=== PATIENT | male | born 1940 | race Caucasian/White ===

== ENCOUNTER 2019-01-01 09:31 | Inpatient (IN) ==
--- NOTE | 2018-12-14 13:17 | Anesthesiology Consultation ---
Date of Service December 14, 2018 Assessment & Plan (1) Encounter for pre-operative examination: Hx CABGx3, multiple cardiac stents. Patient had preop cardiac evaluation at [facility] on 12/28/18. Per patient's , patient was told he was "cleared" for upcoming surgery and that cardiology office sent note to surgeon regarding this. Both surgeon and cardiology office are closed 12/29 and we will be unable to obtain official cardio note until AM DOS. Left message with surgeon's answering service to make them aware to send cardio note to same day JOSE AM DOS. OR made aware to make case later time if possible to allow for obtaining of this note. Dr. Maldonado made aware of the above. Chart Review Chart Review: Patient seen in Pre Admission Testing Teaching & Discussion Pre-Anesthesia Teaching/Discussion Notes: Instructed NPO after midnight before surgery,except medications with 15 cc of water. Medication instructions provided according to the PAT guidelines. History Surgery Operation Date: 01/01/19 12:20 Proposed Procedures p Left Total Hip Arthroplasty - Shorty Curiel Height/Weight Height: 5 ft 8 in Weight: 104.7 kg Allergies Allergy/AdvReac Type Severity Reaction Status Date / Time prednisone AdvReac palpitations Verified 01/01/19 10:01 after hip injection Medications Home Medications Medication Instructions Recorded Confirmed Last Taken aspirin 325 mg PO QAM 12/11/18 01/01/19 12/29/18 08:00 atorvastatin [Lipitor] 10 mg PO HS 12/11/18 01/01/19 12/31/18 22:00 coenzyme Q10 [CoQ-10] 100 mg PO QAM 12/11/18 01/01/19 12/18/18 garlic 500 mg PO QAM 12/11/18 01/01/19 12/18/18 zabkr-bm-1-aii-moc-orymgzc-ast 1 cap PO QAM 12/11/18 01/01/19 12/18/18 [MegaRed [place]-3 Krill Oil] lactobacillus comb no.10 20,000 mmu cells PO QAM 12/11/18 01/01/19 12/31/18 08:00 [Probiotic] metoprolol tartrate 12.5 mg PO Q2D 12/11/18 01/01/19 01/01/19 07:00 omega 6-ovc-mta-fish oil [[place]-3] 1 cap PO QAM 12/11/18 01/01/19 12/18/18 timolol 1 drp OPHTHALMIC (EYE) QAM 12/11/18 01/01/19 01/01/19 07:00 travoprost [Travatan Z] 1 drp OPHTHALMIC (EYE) PM 12/11/18 01/01/19 12/31/18 23:00 ssvaznyorg-ufmalngos-noqmrifev 1 tab PO DAILY 12/14/18 01/01/19 01/01/19 07:00 [Exforge HCT] docusate sodium [Stool Softener] 50 mg PO DAILY PRN 01/01/19 01/01/19 12/31/18 14:00 Active Medications Generic Name Dose Route Start Last Admin Trade Name Freq PRN Reason Stop Dose Admin Acetaminophen 1,000 mg 01/01/19 06:00 01/01/19 10:17 Tylenol PO 01/01/19 18:00 1,000 mg PREOP GEE Administration Celecoxib 200 mg 01/01/19 06:00 01/01/19 10:18 Celebrex PO 01/01/19 18:00 200 mg PREOP GEE Administration Dexamethasone 8 mg 01/01/19 06:00 01/01/19 10:16 Decadron PO 01/01/19 18:00 8 mg PREOP GEE Administration Famotidine 20 mg 01/01/19 06:00 01/01/19 10:17 Pepcid PO 01/01/19 18:00 20 mg PREOP GEE Administration Lactated Ringer's 1,000 mls @ 15 mls/hr 01/01/19 06:00 01/01/19 10:20 Lr IV 01/01/19 18:00 15 mls/hr .Q24H GEE Infusion Metoclopramide HCl 10 mg 01/01/19 06:00 01/01/19 10:17 Reglan PO 01/01/19 18:00 10 mg PREOP GEE Administration Past Medical History Medical History CAD (coronary artery disease) S/P CABG X3/CARDIAC STENT () GERD (gastroesophageal reflux disease) CONTROLLED Hiatal hernia History of colon cancer S/P COLECTOMY/CHEMO (1996) Hyperlipidemia Hypertension Myocardial Infarction 30+ YEARS AGO Obesity Osteoarthritis Past Surgical History Surgical History History of bowel resection History of cardiac cath CARDIAC STENT= History of cholecystectomy History of colectomy History of colonoscopy History of coronary artery bypass graft CABG X 3 () History of vasectomy Past Anesthesia History No Hx of Anesthesia Complications and No Family Hx of Anesthesia Complications History of PONV No Motion Sickness Screening History of Motion Sickness: No Social History Smoking Status: Former smoker tobacco type: cigars Smoking cigarettes per day: QUIT 35 YEARS AGO, HX OF OCCASIONAL CIGARS Do You Dip or Chew Tobacco: No Hx Alcohol Use: Yes Alcohol type: beer and wine alcohol intake frequency: a few times a month Hx Substance Use: No substance use type: does not use Exercise / Class Metabolic Activity II 4-5 Yardwork/Stairs/Walk up hill Review of Systems Patient denies chest pain, shortness of breath, dyspnea on exertion, cough, wheezing, palpitations. Physical Exam Vital Signs Last Vital Signs Temp 36.6 C 01/01/19 10:06 Pulse 81 01/01/19 10:06 Resp 22 01/01/19 10:06 BP 160/83 H 01/01/19 10:06 Pulse Ox 93 01/01/19 10:06 VITALS BP 161/87 P 88 TEMP 98.2 SP02 94%RA RESP 18 PHYSICAL Full neck and c-spine range of motion. Full TMJ range of motion. TMD 3.5 finger breaths Mallampati Score 1 Dentition: intact, possible cap Lungs: clear throughout to auscultation Cardiac: regular rate and rhythm, no murmurs noted Spine: normal Carotid arteries: negative bruit Extremities: no edema Testing Electrocardiogram Date: 12/14/18 NSR at 81bpm. RBBB. Chest X-Ray Date: 12/15/18 status post midline sternotomy. heart is mildly enlarged and there is atherosclerotic calcification of the thoracic aorta. The pulmonary vasculature is noncongested. There are low lung volumes with bibasilar atelectasis. Laboratory Results 12/14/18 13:52 12/14/18 13:52 Blood Type B Positive 12/14/18 13:52 Antibody Screen NEGATIVE 12/14/18 13:52 PT 11.2 Seconds (9.0-12.0) 12/14/18 13:52 INR 1.1 (0.9-1.1) 12/14/18 13:52 APTT 25.9 Seconds (21.0-31.0) 12/14/18 13:52 Urine Color Yellow 12/14/18 Unknown Urine Appearance Clear (Clear) 12/14/18 Unknown Urine pH 6.5 (4.5-7.5) 12/14/18 Unknown Ur Specific [place] 1.008 (1.000-1.030) 12/14/18 Unknown Urine Protein Negative (Negative) 12/14/18 Unknown Urine Glucose (UA) Negative (Negative) 12/14/18 Unknown Urine Ketones Negative (Negative) 12/14/18 Unknown Urine Nitrite Negative (Negative) 12/14/18 Unknown Ur Leukocyte Esterase Negative (Negative) 12/14/18 Unknown 12/14/18 Unknown Urine Culture - Final Urine,Clean Catch Alpha strep. not enterococcus
--- NOTE | 2018-12-14 13:28 | PAT Medication Instructions ---
Medication Instructions Date of Service December 14, 2018 Home Medications aspirin 325 mg PO QAM atorvastatin [Lipitor] 10 mg PO HS coenzyme Q10 [CoQ-10] 100 mg PO QAM garlic 500 mg PO QAM eeskh-fo-6-prb-iqg-wfbcfce-ast 1 cap PO QAM lactobacillus comb no.10 20,000 mmu cells PO QAM metoprolol tartrate 12.5 mg PO Q2D omega 4-sad-alu-fish oil [[place]-3] 1 cap PO QAM timolol 1 drp OPHTHALMIC (EYE) QAM travoprost [Travatan Z] 1 drp OPHTHALMIC (EYE) PM Exforge ASK your prescriber and surgeon aspirin 325 mg PO QAM STOP taking 2 weeks before surgery (or as soon as possible if surgery is within 2 weeks) coenzyme Q10 [CoQ-10] 100 mg PO QAM garlic 500 mg PO QAM bjboj-wx-3-tpy-nos-gwoabha-ast 1 cap PO QAM omega 7-quh-bcw-fish oil [[place]-3] 1 cap PO QAM DO NOT take the morning of surgery lactobacillus comb no.10 20,000 mmu cells PO QAM Exforge Take morning of surgery With a small sip of water, OTHERWISE NOTHING TO EAT OR DRINK AFTER MIDNIGHT: metoprolol tartrate 12.5 mg PO Q2D (take if due to normally take) timolol 1 drp OPHTHALMIC (EYE) QAM Take evening before surgery atorvastatin [Lipitor] 10 mg PO HS travoprost [Travatan Z] 1 drp OPHTHALMIC (EYE) PM Other Notes If you have any questions please call us at [phone] or [phone] or [phone] or [phone]
--- NOTE | 2018-12-14 14:23 | XRay Report ---
TWO VIEW CHEST CLINICAL HISTORY: Preoperative examination. FINDINGS: PA and lateral chest radiographs are obtained. No prior studies are available for compariso n at the time of dictation. The patient is status post midline sternotomy. The heart is mildly enlarg ed and there is atherosclerotic calcification of the thoracic aorta. The pulmonary vasculature is non congested. There are low lung volumes with bibasilar atelectasis. No airspace consolidation or pleura l effusion is identified. There is no pneumothorax. The skeletal structures are osteopenic. The bony thorax appears intact. Cholecystectomy clips are seen in the right upper quadrant. IMPRESSION: Cardiac enlargement with no active disease in the chest. Electronically signed by: Brannon Stockton M.D. 12/14/2018 2:22 PM
[2018-12-14 14:24] LABS: Basophils # (auto) 0.03 K/uL (0-0.2); Basophils % (auto) 0.3 %; Eosinophils # (auto) 0.24 K/uL (0-0.5); Eosinophils % (auto) 2.8 %; Hematocrit (blood only) 41.9 % (42-52); Hemoglobin 14.1 g/dL (14.0-18.0); Immature Granulocytes # (auto) 0.02 K/uL (0.00-0.02); Immature Granulocytes % (auto) 0.2 %; Lymphocytes # (auto) 1.45 K/uL (1.2-3.4); Lymphocytes % (auto) 16.7 %; Mean Corpuscular Hgb Conc 33.7 g/dL (32-36); Mean Corpuscular Volume 87.1 fL (80-100); Mean Platelet Volume 9.3 fL (7.4-10.4); Monocytes # (auto) 0.61 K/uL (0.11-0.59); Neutrophils # (auto) 6.34 K/uL (1.4-6.5); Platelet Count 191 K/uL (130-400); RDW Coefficient of Variation 13.6 % (11.5-14.5); RDW Standard Deviation 43.4 fL (36.4-46.3); Red Blood Count 4.81 M/uL (4.7-6.1); White Blood Count 8.69 K/uL (4.8-10.8)
[2018-12-14 14:46] LABS: INR 1.1 (0.9-1.1); Partial Thromboplastin Time 25.9 Seconds (21.0-31.0); Prothrombin Time 11.2 Seconds (9.0-12.0)
[2018-12-14 15:06] LABS: Albumin Level 4.1 gm/dl (3.4-5.0); BUN Creatinine Ratio 19.4 (10-20); Calcium 8.9 mg/dl (8.5-10.1); Creatinine Clr Calc Pharmacy 86.7 ml/min; Est GFR (African American) 98.1; Est GFR (Non-African American) 84.6; Potassium 3.7 mmol/L (3.5-5.1)
[2018-12-14 15:09] LABS: Bilirubin,Total 0.4 mg/dl (0.2-1); Total Protein 8.1 gm/dl (6.4-8.2)
[2018-12-14 15:30] LABS: Appearance Urine Clear (Clear); Bilirubin Urine Negative (Negative); Blood Urine Negative (Negative); Color Urine Yellow; Glucose Urine UA Negative (Negative); Ketones Urine Negative (Negative); Leukocyte Esterase Urine Negative (Negative); Nitrite Urine Negative (Negative); Protein Urine Negative (Negative); Specific Gravity Urine 1.008 (1.000-1.030); Urobilinogen Urine Negative (Negative); pH Urine 6.5 (4.5-7.5)
--- NOTE | 2018-12-30 14:28 | History & Physical Report ---
Date of Service December 30, 2018 Assessment & Plan (1) Degenerative joint disease of left hip: plan is to be admitted, undergo left maurilio. History of Present Illness Chief Complaint: left hip pain Primary Care Provider: NO PCP left hip pain for years. cant do adls. has tried nsaids and pt without relief. he is ready for MAURILIO left. Allergies Allergy/AdvReac Type Severity Reaction Status Date / Time prednisone AdvReac palpitations Verified 12/29/18 11:35 after hip injection Home Medications Home Medications Medication Instructions Recorded Confirmed Type aspirin 325 mg PO QAM 12/11/18 12/11/18 History atorvastatin [Lipitor] 10 mg PO HS 12/11/18 12/11/18 History coenzyme Q10 [CoQ-10] 100 mg PO QAM 12/11/18 12/11/18 History garlic 500 mg PO QAM 12/11/18 12/11/18 History wmcsg-sk-3-rpa-wtd-okxulxe-ast 1 cap PO QAM 12/11/18 12/11/18 History [MegaRed [place]-3 Krill Oil] lactobacillus comb no.10 20,000 mmu cells PO QAM 12/11/18 12/11/18 History [Probiotic] metoprolol tartrate 12.5 mg PO Q2D 12/11/18 12/11/18 History omega 2-vwr-lku-fish oil [[place]-3] 1 cap PO QAM 12/11/18 12/11/18 History timolol 1 drp OPHTHALMIC (EYE) QAM 12/11/18 12/11/18 History travoprost [Travatan Z] 1 drp OPHTHALMIC (EYE) PM 12/11/18 12/11/18 History xrvmidgoot-wjlxubtad-pgigfjsrg 1 tab PO DAILY 12/14/18 12/14/18 History [Exforge HCT] Past Med/Surg History Medical History CAD (coronary artery disease) S/P CABG X3/CARDIAC STENT () GERD (gastroesophageal reflux disease) CONTROLLED Hiatal hernia History of colon cancer S/P COLECTOMY/CHEMO (1996) Hyperlipidemia Hypertension Myocardial Infarction 30+ YEARS AGO Obesity Osteoarthritis Surgical History History of bowel resection History of cardiac cath CARDIAC STENT= History of cholecystectomy History of colectomy History of colonoscopy History of coronary artery bypass graft CABG X 3 () History of vasectomy Social History Preferred Language: Kazakh Communication Ability: Effective Audio Visual Facilities Engineer Required: No Beliefs That Will Affect Care: None Current Living Situation: Spouse Other Information That Helps Us Care for You: No Feels Safe at Home: Yes Safety Concerns: Feels Safe At This Time Smoking Status: Former smoker Tobacco Type: cigars Cigarettes Per Day: QUIT 35 YEARS AGO, HX OF OCCASIONAL CIGARS Do You Dip or Chew Tobacco: No Second Hand Exposure: No Tobacco Cessation Education Requested by Patient: No Hx Alcohol Use: Yes Alcohol type: beer and wine Hx Substance Use: No Review of Systems All systems reviewed & are unremarkable except as noted in HPI & below Physical Exam Constitutional: WD/WN, vitals as above Respiratory: normal respiratory effort, lungs clear to auscultation Cardiovascular: RRR, no murmur, no edema Gastrointestinal (Abdomen): normal bowel sounds, soft, nontender, no hepatosplenomegaly Musculoskeletal: Hip: + limited ROM of hip and + hip ROM with crepitation
[~2019-01-01 09:31] MED LIST: ACETAMINOPHEN 500 MG TAB PO SCH; BUPIVACAINE 0.5 % 5 MG/1 ML PF 10ML VIAL ONE; CEFAZOLIN 2000MG 2,000 MG/15 ML SYR IV SCH; CeleBREX 200 MG CAP PO SCH; FAMOTIDINE 20 MG TAB PO SCH; LR 500ML BOLUS, THEN 15ML/HR IV SCH; LR 60ML/HR IV SCH; METOCLOPRAMIDE HCL 10 MG TABLET PO SCH; ROPIVACAINE 0.5% HCL/PF 150 MG, BUPIVACAINE 0.5% MPF 30 ML, EPINEPHrine 30MG/30ML (OR U... INFIL SCH; TRANEXAMIC ACID 1,000 MG **IV Intra-op IV SCH; TRANEXAMIC ACID 1,000 MG **IV Pre-op IV SCH; dexAMETHasone 4 MG TAB PO SCH
[2019-01-01] MEDS ORDERED: fentaNYL citrate 100 MCG/2 ML VIAL ONE (09:46)
[2019-01-01] MEDS ORDERED: MIDAZOLAM HCL 1 MG/ML 2ML VIAL ONE (09:46)
[2019-01-01] MEDS ORDERED: PROPOFOL IV EMULSION 10 MG/ML 20 ML VIAL IV ONE ×2 (09:47→12:15)
[2019-01-01] MEDS ORDERED: ONDANSETRON INJ 2 MG/ML 2 ML VIAL ONE (09:47)
[2019-01-01] MEDS ORDERED: ePHEDrine sulfate 50 MG/ML AMP IV PRN (10:02)
[2019-01-01] MEDS ORDERED: ONDANSETRON INJ 2 MG/ML 2 ML VIAL IV PRN ×2 (10:02→14:10)
[2019-01-01] MEDS ORDERED: ATROPINE SULFATE 0.1 MG/ML 10ML SYR IV PRN (10:02)
--- NOTE | 2019-01-01 10:18 | History & Physical Bridge Note ---
Date of Service January 01, 2019 History & Physical Bridge Note I have examined the patient, reviewed the History & Physical and in the interval since the performance of the History & Physical I have noted the following changes of clinical significance: no changes noted
[2019-01-01] MEDS ORDERED: BACITRACIN INJ 50,000 UNIT VIAL ONE (10:38)
[2019-01-01] MEDS ORDERED: POVIDONE-IODINE OP SOLN 30 ML BTL ONE (10:38)
[2019-01-01] MEDS ORDERED: ORTHO JOINT ANESTHETIC ONE (10:38)
[2019-01-01] MEDS ORDERED: PHENYLEPHRINE HCL 10 MG/ML VIAL ONE (11:41)
[2019-01-01] MEDS ORDERED: LIDOCAINE HCL 2% 2 ML VIAL/AMP(20MG/ML) INFIL ONE (12:15)
--- NOTE | 2019-01-01 12:21 | Operative Report ---
Post Operative Report Pre & Post Diagnosis Operation Date: 01/01/19 12:20 Pre-Op Diagnosis: Left Hip Osteoarthritis Post-Op Diagnosis: Left Hip Osteoarthritis Procedure Operation Date: 01/01/19 12:20 Actual Procedures p Left Total Hip Arthroplasty(Left) - Shorty Curiel Surgeon Shorty Curiel Clerical Support Specialist Mundo Serrano PA-C Estimated Blood Loss 30 Findings Consistent with Post-Op Diagnosis Specimens None Complications none Disposition Accompanied Patient To Recovery: No Disposition: Recovery Room Description of Procedure IMPLANTS USED: Alejandro size 52 mm Trident 2 Tritanium acetabular cup, one acetabular screw, a 36 mm X3 elevate liner, a #7 Accolade 2 stem with a 127 degree neck, 36 mm +5 ceramic INDICATIONS: Mr. Bustamante is a pleasant male who has unfortunately failed all forms of conservative measures. Therefore, they have has decided to undergo elective surgical intervention. All risks and benefits of the surgery were discussed with the patient and the family in entirety. PROCEDURE: The patient was brought to the operating room and properly identified by myself, anesthesia, and staff. Patient was given a spinal anesthetic and placed on the operating table with the left hip up. The hip was then prepped and draped in the standard orthopedic fashion. We made a standard posterolateral approach over the greater trochanteric area. We then dissected down to subcutaneous tissue until the fascia was identified. We incised the fascia in line with the skin incision. We then split the gluteus sudeep muscles with finger dissection. We then put the Charnley retractor in place. We placed the retractor underneath the gluteus medius to expose the piriformis. The piriformis was then tagged with a tag suture and released from the insertion from the greater trochanteric area with the use of electrocautery. We then performed a T capsulotomy and the femoral head and neck were atraumatically dislocated. We then performed femoral neck osteotomy at the pre-template site. We removed the femoral head and neck without difficulty. We then placed the retractor around the acetabulum. We then began to ream the acetabulum to the appropriate size. We then impacted the cup into place and had a very good fix ation within the pelvis. We then put the liner in place as well. Then using multiple size approaches from the Accolade 2 system a size #7 fit very nicely in the proximal femur. I then put trial components in place. WE had very good range of motion, excellent stability, and excellent leg length equality. We removed the trial components and irrigated the wound. We then impacted the components in place and irrigated the wound once more. We then closed the capsule and fascia with a 0 Vicryl suture, the deep dermis with 2-0 Vicryl suture, and finally the skin with a running 3-0 Vicryl subcuticular stitch. A sterile dressing was applied. The patient was taken to the recovery room in stable condition. Due to the complex nature of the procedure, the entire surgery was performed with the operational assistance of Mundo Serrano PA-C. The help desk assistant was under direct supervision, was involved in the actual performance of all aspects of the surgical procedure including hemostasis, tissue retraction and incision, instrument management, patient positioning, and wound closure. I attest to the content of the Intraoperative Record and any orders documented therein. Any exceptions are noted below.
--- NOTE | 2019-01-01 13:44 | Anesthesiology Progress Note ---
Date of Service January 01, 2019 Anesthesia Post Procedure Vital Signs Vital Signs: Temp Pulse Pulse Resp BP BP Pulse Ox 01/01/19 13:40 70 17 95 01/01/19 13:35 79 15 103/55 L 96 01/01/19 13:31 80 15 96 01/01/19 13:30 80 16 99/55 L 95 01/01/19 13:27 79 16 95 01/01/19 13:26 82 19 103/54 L 95 01/01/19 13:25 81 21 96 01/01/19 13:22 36.6 C 80 16 108/62 96 01/01/19 13:21 83 18 95 01/01/19 13:20 81 17 108/62 96 01/01/19 13:15 79 17 93/57 L 96 01/01/19 13:11 83 26 H 97 01/01/19 13:10 79 15 99/59 L 97 01/01/19 13:06 84 19 97 01/01/19 13:05 80 17 95/53 L 98 01/01/19 13:00 81 16 103/52 L 97 01/01/19 12:56 82 17 95/51 L 98 01/01/19 12:55 83 18 99 01/01/19 12:51 81 18 87/48 L 97 01/01/19 12:50 83 22 96 01/01/19 12:45 79 17 99/48 L 97 01/01/19 12:41 82 14 97 01/01/19 12:40 77 14 101/57 L 97 01/01/19 12:35 80 18 85/47 L 97 01/01/19 12:33 36.8 C 79 80 14 91/47 L 91/47 L 97 01/01/19 12:31 79 17 87 L 01/01/19 10:06 36.6 C 81 22 160/83 H 93 Pain Intensity Left Hip: Pain Intensity: 4 Notes Mental Status: alert / awake / arousable Patient Amnestic to Procedure: Yes Nausea / Vomiting: adequately controlled Pain: adequately controlled Airway Patency, RR, SpO2: stable & adequate BP & HR: stable & adequate Hydration State: stable & adequate Neuraxial Anesthesia: was administered and sensory block is resolving Anesthetic Complications: no major complications apparent and Pt Satisfied with anesthetic care
[2019-01-01] MEDS ORDERED: MAGNESIUM HYDROXIDE SUSP 30 ML UDC PO PRN (14:10)
[2019-01-01] MEDS ORDERED: OXYCODONE HCL IR 5 MG TAB (IMMEDIATE RELEASE) PO PRN (14:10)
[2019-01-01] MEDS ORDERED: NALOXONE HCL 0.4 MG/1 ML VIAL/CARP IV PRN (14:10)
[2019-01-01] MEDS ORDERED: TRAMADOL HCL 50 MG TABLET PO PRN (14:10)
[2019-01-01] MEDS ORDERED: ALUMINUM/MAGNESIUM SUSP 30 ML UDC PO PRN (14:10)
[2019-01-01] MEDS ORDERED: METOCLOPRAMIDE HCL INJ 5 MG/ML 2 ML VIAL IV PRN (14:10)
[2019-01-01] MEDS ORDERED: BISACODYL 10 MG SUPP PR PRN (14:10)
[2019-01-01] MEDS: CEFAZOLIN 2000MG 2,000 MG/15 ML SYR IV SCH (18:27)
[2019-01-01] MEDS ORDERED: TRANEXAMIC ACID 1,000 MG in 0.9 % SODIUM CHLORIDE 100 ML IV SCH (18:30)
[2019-01-01] MEDS: SODIUM CHLORIDE 0.9% 1000ML 1,000 ML IV SCH (18:40)
[2019-01-01] MEDS ORDERED: TRAVOPROST Z 0.004% OPH SOLN 2.5 ML BTL OP SCH (21:00)
[2019-01-01] MEDS ORDERED: SENNA 8.6 MG TAB PO SCH (21:00)
[2019-01-01] MEDS ORDERED: ATORVASTATIN 10 MG TAB PO SCH (21:00)
[2019-01-01] MEDS: DOCUSATE SODIUM 100 MG CAP PO SCH (21:32)
[2019-01-01] MEDS: ACETAMINOPHEN 500 MG TAB PO SCH (21:33)
[2019-01-02] MEDS: CEFAZOLIN 2000MG 2,000 MG/15 ML SYR IV SCH (04:18)
[2019-01-02] MEDS: SODIUM CHLORIDE 0.9% 1000ML 1,000 ML IV SCH (04:30)
[2019-01-02] MEDS: ACETAMINOPHEN 500 MG TAB PO SCH ×2 (05:35→13:02)
[2019-01-02 05:44] LABS: Hemoglobin 13.2 g/dL (14.0-18.0); Immature Granulocytes # (auto) 0.05 K/uL (0.00-0.02); Immature Granulocytes % (auto) 0.3 %; Lymphocytes # (auto) 0.72 K/uL (1.2-3.4); Lymphocytes % (auto) 4.2 %; Mean Corpuscular Volume 87.9 fL (80-100); Mean Platelet Volume 9.2 fL (7.4-10.4); Monocytes # (auto) 1.03 K/uL (0.11-0.59); Neutrophils % (auto) 89.5 %; Platelet Count 180 K/uL (130-400); RDW Coefficient of Variation 13.5 % (11.5-14.5); RDW Standard Deviation 43.3 fL (36.4-46.3); Red Blood Count 4.55 M/uL (4.7-6.1)
[2019-01-02 06:24] LABS: BUN Creatinine Ratio 20.3 (10-20); Creatinine Clr Calc Pharmacy 68.5 ml/min; Est GFR (African American) 77.7; Est GFR (Non-African American) 67.1
[2019-01-02] MEDS ORDERED: dexAMETHasone 10 MG in SYRINGE 0 ML IV SCH (08:00)
--- NOTE | 2019-01-02 08:25 | Anesthesiology Progress Note ---
Date of Service January 02, 2019 Anesthesia Post Procedure Vital Signs Vital Signs: Temp Pulse Pulse Pulse Resp BP BP 01/02/19 08:22 36.6 C 82 16 139/70 01/02/19 03:32 36.9 C 78 14 132/68 01/01/19 23:01 37.0 C 74 14 128/58 L 01/01/19 17:00 36.5 C 72 16 122/64 01/01/19 16:04 36.5 C 74 16 129/68 01/01/19 15:00 36.6 C 70 16 114/64 01/01/19 14:31 67 16 109/59 L 01/01/19 14:00 36.5 C 69 19 100/63 01/01/19 13:40 70 17 01/01/19 13:35 79 15 103/55 L 01/01/19 13:31 80 15 01/01/19 13:30 80 16 99/55 L 01/01/19 13:27 79 16 01/01/19 13:26 82 19 103/54 L 01/01/19 13:25 81 21 01/01/19 13:22 36.6 C 80 16 108/62 01/01/19 13:21 83 18 01/01/19 13:20 81 17 108/62 01/01/19 13:15 79 17 93/57 L 01/01/19 13:11 83 26 H 01/01/19 13:10 79 15 99/59 L 01/01/19 13:06 84 19 01/01/19 13:05 80 17 95/53 L 01/01/19 13:00 81 16 103/52 L 01/01/19 12:56 82 17 95/51 L 01/01/19 12:55 83 18 01/01/19 12:51 81 18 87/48 L 01/01/19 12:50 83 22 01/01/19 12:45 79 17 99/48 L 01/01/19 12:41 82 14 01/01/19 12:40 77 14 101/57 L 01/01/19 12:35 80 18 85/47 L 01/01/19 12:33 36.8 C 79 80 14 91/47 L 91/47 L 01/01/19 12:31 79 17 01/01/19 10:06 36.6 C 81 22 160/83 H Pulse Ox 04/23/19 08:22 96 01/02/19 03:32 96 01/01/19 23:01 94 01/01/19 17:00 92 01/01/19 16:04 98 01/01/19 15:00 98 01/01/19 14:31 97 01/01/19 14:00 94 01/01/19 13:40 95 01/01/19 13:35 96 01/01/19 13:31 96 01/01/19 13:30 95 01/01/19 13:27 95 01/01/19 13:26 95 01/01/19 13:25 96 01/01/19 13:22 96 01/01/19 13:21 95 01/01/19 13:20 96 01/01/19 13:15 96 01/01/19 13:11 97 01/01/19 13:10 97 01/01/19 13:06 97 01/01/19 13:05 98 01/01/19 13:00 97 01/01/19 12:56 98 01/01/19 12:55 99 01/01/19 12:51 97 01/01/19 12:50 96 01/01/19 12:45 97 01/01/19 12:41 97 01/01/19 12:40 97 01/01/19 12:35 97 01/01/19 12:33 97 01/01/19 12:31 87 L 01/01/19 10:06 93 Pain Intensity Left Hip: Pain Intensity: 1 Notes Mental Status: alert / awake / arousable Patient Amnestic to Procedure: Yes Nausea / Vomiting: adequately controlled Pain: adequately controlled Airway Patency, RR, SpO2: stable & adequate BP & HR: stable & adequate Hydration State: stable & adequate Neuraxial Anesthesia: was administered and sensory block resolved Anesthetic Complications: no major complications apparent
[2019-01-02] MEDS: DOCUSATE SODIUM 100 MG CAP PO SCH (08:31)
[2019-01-02] MEDS ORDERED: ASPIRIN 325 MG ECTAB PO SCH (09:00)
[2019-01-02] MEDS ORDERED: AMLODIPINE BESYLATE 5 MG TAB PO SCH (09:00)
[2019-01-02] MEDS ORDERED: VALSARTAN 80 MG TAB PO SCH (09:00)
[2019-01-02] MEDS ORDERED: TIMOLOL MALEATE 0.25% OP SOLN 5 ML BTL OPB SCH (09:00)
[2019-01-02] MEDS ORDERED: hydroCHLOROthiazide 25 MG TAB PO SCH (09:00)
--- NOTE | 2019-01-02 10:22 | Orthopedic Progress Note ---
Date of Service January 02, 2019 Assessment & Plan (1) Degenerative joint disease of left hip: POD 1 s/p Left MAURILIO PT/OT. WBAT DVT prophylaxis with ASA,SCD's,SONIA's Continue current pain regimen DC plans - dc to home with home health services. Subjective POD 1 s/p Left MAURILIO Pt sitting up in chair at bedside. States he just had PT which went well. No complaints. Pain controlled. Denies SOB , CP,LH, N/V. He worked on stairs as well. Physical Exam Physical Exam: Dressings C/D/I. Calves, soft, NT. NV intact. Hip located. Results & Data Vital Signs (Past 12 Hours) Vital Signs Temp Pulse Resp BP Pulse Ox 01/02/19 08:22 36.6 C 82 16 139/70 96 01/02/19 03:32 36.9 C 78 14 132/68 96 01/01/19 23:01 37.0 C 74 14 128/58 L 94 Laboratory Results Laboratory Results WBC 17.30 K/uL (4.8-10.8) H 01/02/19 05:26 RBC 4.55 M/uL (4.7-6.1) L 01/02/19 05:26 Hgb 13.2 g/dL (14.0-18.0) L 01/02/19 05:26 Hct 40.0 % (42-52) L 01/02/19 05:26 MCV 87.9 fL (80-100) 01/02/19 05:26 MCH 29.0 pg (25-34) 01/02/19 05:26 MCHC 33.0 g/dL (32-36) 01/02/19 05:26 RDW Std Deviation 43.3 fL (36.4-46.3) 01/02/19 05:26 RDW Coeff of Tonie 13.5 % (11.5-14.5) 01/02/19 05:26 Plt Count 180 K/uL (130-400) 01/02/19 05:26 MPV 9.2 fL (7.4-10.4) 01/02/19 05:26 Immature Gran % (Auto) 0.3 % 01/02/19 05:26 Neut % (Auto) 89.5 % 01/02/19 05:26 Lymph % (Auto) 4.2 % 01/02/19 05:26 [place] % (Auto) 6.0 % 01/02/19 05:26 Eos % (Auto) 0.0 % 01/02/19 05:26 Baso % (Auto) 0.0 % 01/02/19 05:26 Immature Gran # (Auto) 0.05 K/uL (0.00-0.02) H 01/02/19 05:26 Neut # (Auto) 15.50 K/uL (1.4-6.5) H 01/02/19 05:26 Lymph # (Auto) 0.72 K/uL (1.2-3.4) L 01/02/19 05:26 [place] # (Auto) 1.03 K/uL (0.11-0.59) H 01/02/19 05:26 Eos # (Auto) 0.00 K/uL (0-0.5) 01/02/19 05:26 Baso # (Auto) 0.00 K/uL (0-0.2) 01/02/19 05:26 PT 11.2 Seconds (9.0-12.0) 12/14/18 13:52 INR 1.1 (0.9-1.1) 12/14/18 13:52 APTT 25.9 Seconds (21.0-31.0) 12/14/18 13:52 PTT Ratio 1.0 12/14/18 13:52 Sodium 138 mmol/L (136-145) 01/02/19 05:26 Potassium 4.0 mmol/L (3.5-5.1) 01/02/19 05:26 Chloride 102 mmol/L (98-107) 01/02/19 05:26 Carbon Dioxide 30 mmol/L (21-32) 01/02/19 05:26 Anion Gap 5.0 (3-11) 01/02/19 05:26 BUN 22 mg/dl (7-18) H 01/02/19 05:26 Creatinine 1.07 mg/dl (0.6-1.4) 01/02/19 05:26 Est Cr Clr Drug Dosing 68.5 ml/min 01/02/19 05:26 Est GFR ( Amer) 77.7 01/02/19 05:26 Est GFR (Non-Af Amer) 67.1 01/02/19 05:26 BUN/Creatinine Ratio 20.3 (10-20) H 01/02/19 05:26 Glucose 126 mg/dl (70-99) H 01/02/19 05:26 Calcium 9.0 mg/dl (8.5-10.1) 01/02/19 05:26 Total Bilirubin 0.4 mg/dl (0.2-1) 12/14/18 13:52 AST 19 U/L (15-37) 12/14/18 13:52 ALT 34 U/L (12-78) 12/14/18 13:52 Alkaline Phosphatase 62 U/L (45-117) 12/14/18 13:52 Total Protein 8.1 gm/dl (6.4-8.2) 12/14/18 13:52 Albumin 4.1 gm/dl (3.4-5.0) 12/14/18 13:52 Globulin 4.0 gm/dl (2.5-4.0) 12/14/18 13:52 Albumin/Globulin Ratio 1.0 (0.9-2) 12/14/18 13:52 Urine Color Yellow 12/14/18 Unknown Urine Appearance Clear (Clear) 12/14/18 Unknown Urine pH 6.5 (4.5-7.5) 12/14/18 Unknown Ur Specific [place] 1.008 (1.000-1.030) 12/14/18 Unknown Urine Protein Negative (Negative) 12/14/18 Unknown Urine Glucose (UA) Negative (Negative) 12/14/18 Unknown Urine Ketones Negative (Negative) 12/14/18 Unknown Urine Blood Negative (Negative) 12/14/18 Unknown Urine Nitrite Negative (Negative) 12/14/18 Unknown Urine Bilirubin Negative (Negative) 12/14/18 Unknown Urine Urobilinogen Negative (Negative) 12/14/18 Unknown Ur Leukocyte Esterase Negative (Negative) 12/14/18 Unknown Nasal Screen MRSA (PCR) Negative (Negative) 12/14/18 Unknown Blood Type B Positive 12/14/18 13:52 Antibody Screen NEGATIVE 12/14/18 13:52
[2019-01-03] MEDS ORDERED: METOPROLOL TARTRATE 25 MG TAB PO SCH (09:00)
--- NOTE | 2019-01-06 01:38 | Discharge Summary ---
DISCHARGE DIAGNOSIS: Left hip osteoarthritis. SECONDARY DIAGNOSES: Coronary artery disease status post cardiac stenting, gastroesophageal reflux disease, hiatal hernia, history of colon carcinoma, hyperlipidemia, hypertension, myocardial infarction, obesity, osteoarthritis. CONSULTS: None. COMPLICATIONS: None. PROCEDURES: Left total hip arthroplasty performed by Dr. Curiel on 01/01/2019. BRIEF HISTORY: As dictated in history and physical. HOSPITAL SUMMARY: The patient was admitted on the above date and had the above-noted surgery performed which he tolerated well. On the first postoperative day, he was sitting up to chair at the bedside and stated he had just had physical therapy which went well, no complaints. Pain was controlled. Denies shortness of breath, chest pain or lightheadedness, no nausea or vomiting. He worked on his stairs as well with PT and did well. Dressings clean, dry and intact. Calves were soft, nontender. Neurovascularly intact. Hip was located. Vital signs were stable. He was afebrile and hemoglobin was 13.2. He was continued on his protocol and remained stable and was progressing well and it was felt he could be discharged home on 01/02/2019. For further review, please see chart. LABORATORY AND X-RAY DATA: As per chart. DISCHARGE INSTRUCTIONS: The patient was discharged home in satisfactory condition on 01/02/2019 with home health services. DIET: Regular. ACTIVITY: Weightbearing as tolerated, left lower extremity with walker. Follow [facility] instruction sheets and special care instructions as noted and follow up with Dr. Curiel in 2 weeks. The patient to call for appointment if one has not been made for you. DISCHARGE MEDICATIONS: Acetaminophen 1000 mg p.o. q.8 hours, cefadroxil 500 mg p.o. b.i.d., oxycodone 5 mg p.o. q.4-6 hours p.r.n., resume home meds as listed and stop taking omega-3.
== END 2019-01-02 13:52 | disposition home health service (06) | DRG 470 ==
LOC: ASU 09:31 → 3E 14:06